=== PATIENT | female | born 1990 | race Caucasian/White ===

== ENCOUNTER 2017-03-09 21:33 | Emergency (ER) | payer MEDICAID ==
[2017-03-09] MEDS ORDERED: Sodium Chloride 0.9% 1,000 ML IV ONE (22:30)
[2017-03-09 22:56] LABS: BASO % 0.5 % (0.0-2.0); EOS # 0.1 K/uL (0.0-0.7); HEMATOCRIT 40.3 % (34.0-47.0); LYMPH % 24.6 % (20.0-40.0); MEAN CELL VOLUME 81.9 fL (81.0-99.0); MEAN CORPUSCULAR HGB CONC 34.2 g/dL (33.0-37.0); MEAN PLATELET VOLUME 9.8 fL (7.2-11.7); MONO # 0.8 K/uL (0.0-0.8); MONO % 10.1 % (0.0-10.0); RED CELL DISTRIBUTION WIDTH 13.6 % (11.5-14.5); WHITE BLOOD COUNT 8.3 K/uL (4.8-10.8)
[2017-03-09 23:05] LABS: CHLORIDE 94 mmol/L (98-107); RBC URINE 3 /hpf (0-3); SODIUM 135 mmol/L (132-148); URINE BACTERIA RARE (<OCC); URINE BILIRUBIN NEGATIVE (NEGATIVE); URINE BLOOD 1+ (NEGATIVE); URINE COLOR Yellow (YELLOW); URINE GLUCOSE (UA) NORMAL (Normal); URINE KETONE 1+ mg/dL (NEGATIVE); URINE LEUKOCYTE ESTERASE NEG Leu/uL (Negative); URINE PROTEIN NEGATIVE (NEGATIVE); URINE UROBILINOGEN NORMAL mg/dL (0.2-1.0); WBC URINE < 1 /hpf (0-5)
[2017-03-09 23:06] LABS: POTASSIUM 3.4 mmol/L (3.6-5.2)
[2017-03-09 23:08] LABS: ALB/GLOB RATIO 1.3 (1.0-2.1); ALKALINE PHOSPHATASE 53 U/L (38-126); ALT/SGPT 46 U/L (9-52); AST/SGOT 24 U/L (14-36); BILIRUBIN,TOTAL 0.7 mg/dL (0.2-1.3); BLOOD UREA NITROGEN 9 mg/dL (7-17); CALCIUM 9.5 mg/dl (8.6-10.4); CARBON DIOXIDE 24 mmol/L (22-30); GFR AFRICAN-AMERICAN > 60; GLUCOSE,RANDOM 88 mg/dL (65-105); TOTAL PROTEIN 7.8 g/dL (6.3-8.3)
--- NOTE | 2017-03-09 23:38 | C.PDOC ---
History Of Present Illness 27 year old female who presents to the ER with a complaint of persistent nausea and vomiting for the past 5 days. Patient is unsure if she is ; denies fever, chills, or abdominal pain. Time Seen by Provider: 03/09/17 22:27 Chief Complaint (Nursing): Abdominal Pain History Per: Patient History/Exam Limitations: no limitations Onset/Duration Of Symptoms: Days Current Symptoms Are (Timing): Still Present Associated Symptoms: Nausea, Vomiting. denies: Fever, Chills Exacerbating Factors: None Alleviating Factors: None Recent travel outside of the [place]: No Abnormal Vaginal Bleeding: No Past Medical History Reviewed: Historical Data, Nursing Documentation, Vital Signs Vital Signs: Last Vital Signs Temp 98 F 03/09/17 23:57 Pulse 75 03/09/17 23:57 Resp 16 03/09/17 23:57 BP 123/76 03/09/17 23:57 Pulse Ox 100 03/10/17 00:22 - Medical History PMH: Asthma Surgical History: No Surg Hx Family History: States: Unknown Family Hx - Social History Hx Alcohol Use: No Hx Substance Use: No - Immunization History Hx Tetanus Toxoid Vaccination: No Hx Influenza Vaccination: No Hx Pneumococcal Vaccination: No Review Of Systems Constitutional: Negative for: Fever, Chills Gastrointestinal: Positive for: Nausea, Vomiting. Negative for: Abdominal Pain Physical Exam - Physical Exam Appears: Non-toxic, No Acute Distress Skin: Normal Color, Warm, Dry Head: Atraumatic, Normacephalic Oral Mucosa: Moist Chest: Symmetrical, No Tenderness Cardiovascular: Rhythm Regular, No Murmur Respiratory: Normal Breath Sounds, No Rales, No Rhonchi, No Wheezing Gastrointestinal/Abdominal: Soft, No Tenderness Neurological/Psych: Oriented x3, Normal Speech, Normal Cognition ED Course And Treatment - Laboratory Results Result Diagrams: 03/09/17 22:53 03/09/17 22:53 Lab Interpretation: Normal (Quant HCG 97,215, UA neg.) Urine POC: Positive O2 Sat by Pulse Oximetry: 100 (Room air) Pulse Ox Interpretation: Normal Progress Note: EKG, blood work, and urinalysis ordered. IV fluids, pepcid, zofran, and toradol administered. Medical Decision Making Medical Decision Making: early , hyperemesis gravidarum. no indication for stat preg US with benign belly and no adenexal tenderness. Disposition Doctor Will See Patient In The: Office Counseled Patient/Family Regarding: Studies Performed, Diagnosis - Disposition Referrals: [facility] [Outside] [facility] [Outside] [facility] [Outside] Disposition: HOME/ ROUTINE Disposition Time: 23:38 Condition: GOOD Additional Instructions: continue daily vitamin follow-up for approx 12 week ultrasoud, call our [facility] for care. Prescriptions: Ondansetron ODT [Zofran ODT] 4 mg PO Q6H PRN #6 odt PRN Reason: Nausea/Vomiting Instructions: Hyperemesis Gravidarum (ED) Forms: [employer] ([place]) - Clinical Impression Clinical Impression: Vomiting affecting - Scribe Statement The provider has reviewed the documentation as recorded by the Scriblakeisha Harris All medical record entries made by the Scribe were at my direction and personally dictated by me. I have reviewed the chart and agree that the record accurately reflects my personal performance of the history, physical exam, medical decision making, and the department course for this patient. I have also personally directed, reviewed, and agree with the discharge instructions and disposition.
[2017-03-09 23:58] VITALS: BP 123/76; PULSE 75; RESP 16; TEMP 98
[2017-03-10 00:18] VITALS: O2SAT 100
== END 2017-03-09 23:58 | disposition home or self-care (01) ==
LOC: C.ER 21:33
DX: O21.9 Vomiting of pregnancy, unspecified (principal)
CPT/HCPCS: 80053; 81001; 83690; 84702; 84703; 85025; 96374; 96375; 99284; J1885; J2405; J7040